=== PATIENT | male | born 1940 | race Caucasian/White ===

== ENCOUNTER 2021-06-01 21:16 | Emergency (ER) | payer MEDICARE ==
--- NOTE | 2021-06-01 21:43 | EDM.PDOC ---
ED HPI GENERAL MEDICAL PROBLEM - General Chief Complaint: Bite:Animal, Insect Stated Complaint: BEE STING Time Seen by Provider: 06/01/21 21:38 Source of Information: Reports: Patient History Limitations: Reports: No Limitations - History of Present Illness INITIAL COMMENTS - FREE TEXT/NARRATIVE: Andrei is an 81-year-old male presenting to the ED for evaluation of a bee sting to his left hand. The patient is concerned because is causing swelling around his wedding band on his left fourth finger. He has been unable to get the ring off the finger, however, the distal finger is swollen and red but has good capillary refill and is nontender. There is no nailbed cyanosis. Patient is requesting that we cut the ring off. He is not exhibiting any other symptoms secondary to the sting other than local swelling. denies pain Pain Score (Numeric/FACES): 0 - Related Data Allergies Allergy/AdvReac Type Severity Reaction Status Date / Time No Known Allergies Allergy Verified 06/01/21 21:37 ED ROS GENERAL - Review of Systems Review Of Systems: See Below Constitutional: Reports: No Symptoms Musculoskeletal: Reports: No Symptoms, Other (Swelling of the dorsal left hand and down the left fourth finger. There is a wedding band on the proximal digit causing some constriction.) Skin: Reports: Erythema (Erythema and edema in the dorsal hand and left third and fourth fingers) Neurological: Reports: No Symptoms ED EXAM, ANIMAL BITE - Physical Exam Exam: See Below Exam Limited By: No Limitations General Appearance: Alert, No Apparent Distress Respiratory/Chest: No Respiratory Distress Cardiovascular: Normal Peripheral Pulses Peripheral Pulses: 2+: Radial (L) Extremities: Other (Swelling and redness on the dorsal left hand and down the dorsal left third and fourth fingers. There is a ring on the fourth finger causing some constriction but no cyanosis of the nailbed. Capillary refill in the nailbed is brisk. There is no change in distal sensation.) Neurological: Alert, Oriented, Normal Cognition, No Motor/Sensory Deficits Course - Vital Signs Last Recorded V/S: Last Vital Signs Temp 36.2 C 06/01/21 21:32 Pulse 66 06/01/21 21:32 Resp 16 06/01/21 21:32 BP 126/76 06/01/21 21:32 Pulse Ox 98 06/01/21 21:32 - Re-Assessments/Exams Free Text/Narrative Re-Assessment/Exam: 06/01/21 21:41 the electric ring cutter was used to remove the wedding band from the left fourth finger. This was performed while holding the ring to ensure that the temperature of the ring did not heat up. I was able to remove the object without incident. Departure - Departure Time of Disposition: 21:41 Disposition: Home, Self-Care 01 Clinical Impression: Bee sting reaction Qualifiers: Encounter type: initial encounter Injury intent: accidental or unintentional Qualified Code(s): T63.441A - Toxic effect of venom of bees, accidental (unintentional), initial encounter Foreign body of finger of left hand Qualifiers: Encounter type: initial encounter Qualified Code(s): S60.459A - Superficial foreign body of unspecified finger, initial encounter - Discharge Information Instructions: Bee, Wasp, or Hornet Sting, Adult Referrals: PCP,None [Primary Care Provider] - Care Plan Goals: You may apply ice to the area to reduce swelling. The ring can be repaired at a local jeweler. Sepsis Event Note (ED) - Evaluation Sepsis Screening Result: No Definite Risk - Focused Exam Vital Signs: Vital Signs Temp Pulse Resp BP Pulse Ox 06/01/21 21:32 36.2 C 66 16 126/76 98 06/01/21 21:31 36.2 C 66 16 126/76 98 - Problem List & Annotations (1) Bee sting reaction SNOMED Code(s): 269223025, 663094081, 471228157 Code(s): T63.441A - TOXIC EFFECT OF VENOM OF BEES, ACCIDENTAL, INIT Status: Acute Priority: Low Current Visit: Yes Qualifiers: Encounter type: initial encounter Injury intent: accidental or unint entional Qualified Code(s): T63.441A - Toxic effect of venom of bees, accidental (unintentional), initial encounter (2) Foreign body of finger of left hand SNOMED Code(s): 882728882 Code(s): S60.459A - SUPERFICIAL FOREIGN BODY OF UNSPECIFIED FINGER, INIT ENCNTR Status: Acute Priority: Low Current Visit: Yes Qualifiers: Encounter type: initial encounter Qualified Code(s): S60.459A - Superficial foreign body of unspecified finger, initial encounter - Problem List Review Problem List Initiated/Reviewed/Updated: Yes
== END 2021-06-01 21:56 | disposition home or self-care (01) ==
LOC: JP.ED 21:16
DX: T63.441A Toxic effect of venom of bees, accidental (unintentional), initial encounter (principal); S60.455A Superficial foreign body of left ring finger, initial encounter; S60.453A Superficial foreign body of left middle finger, initial encounter; W45.8XXA Other foreign body or object entering through skin, initial encounter
CPT/HCPCS: 99282